=== PATIENT | female | born 1975 ===

== ENCOUNTER 2017-06-17 20:58 | Emergency (ER) | payer OTHER ==
[2017-06-17 21:16] VITALS: BP 124/77; PULSE 62; RESP 18; TEMP 98.5; O2SAT 99
--- NOTE | 2017-06-17 21:59 | ED PDOC ---
HPI: Abdomen Time Seen by Provider: 06/17/17 21:24 Chief Complaint (Nursing): Female Genitourinary Chief Complaint (Provider): abdominal pain History Per: Patient History/Exam Limitations: no limitations Onset/Duration Of Symptoms: Days (2), Waxing/Waning Current Symptoms Are (Timing): Still Present Location Of Pain/Discomfort: RUQ, RLQ, Other (right flank) Quality Of Discomfort: Stabbing, "Pain" Associated Symptoms: Nausea. denies: Fever, Chills, Vomiting, Constipation, Urinary Symptoms Additional History Per: Patient Additional Complaint(s): 41 y/o female presents with intermittent right-sided abdominal pain x 2 days. Associated nausea, dysuria. Denies fever, vomiting, chest pain, changes in bowel movements, hematuria, vaginal bleeding/discharge. Patient states she has a history of ovarian cysts. Past Medical History Reviewed: Historical Data, Nursing Documentation, Vital Signs Vital Signs: Last Vital Signs Temp 98.5 F 06/17/17 21:11 Pulse 62 06/17/17 21:11 Resp 18 06/17/17 21:11 BP 124/77 06/17/17 21:11 Pulse Ox 99 06/17/17 23:40 - Surgical History Surgical History: Cholecystectomy - Family History Family History: States: No Known Family Hx - Home Medications Home Medications: Ambulatory Orders Medication Instructions Recorded Naproxen [Naprosyn] 500 mg PO Q12 PRN #20 tablet 06/18/17 - Allergies Allergies/Adverse Reactions: Allergies Allergy/AdvReac Type Severity Reaction Status Date / Time No Known Allergies Allergy Verified 06/17/17 21:39 Review of Systems ROS Statement: Except As Marked, All Systems Reviewed And Found Negative Gastrointestinal: Positive for: Abdominal Pain Genitourinary Female: Positive for: Dysuria Physical Exam - Reviewed Nursing Documentation Reviewed: Yes Vital Signs Reviewed: Yes - Physical Exam Appears: Positive for: Well, Non-toxic, No Acute Distress Head Exam: Positive for: ATRAUMATIC, NORMAL INSPECTION, NORMOCEPHALIC Skin: Positive for: Normal Color Eye Exam: Positive for: Normal appearance ENT: Positive for: Normal ENT Inspection Cardiovascular/Chest: Positive for: Regular Rate, Rhythm Respiratory: Positive for: Normal Breath Sounds Gastrointestinal/Abdominal: Positive for: Bowel Sounds, Soft, Tenderness (rlq, right flank). Negative for: Distended, Rebound Back: Positive for: Normal Inspection Extremity: Positive for: Normal ROM Neurologic/Psych: Positive for: Alert, Oriented - Laboratory Results Result Diagrams: 06/17/17 23:14 06/17/17 23:14 - ECG O2 Sat by Pulse Oximetry: 99 - Progress ED Course And Treament: EXAM: US Pelvis, Transvaginal CLINICAL HISTORY: 41 years old, female; Pain; Pelvic pain; Additional info: Right pelvic pain, h/ o cyst TECHNIQUE: Real-time transvaginal pelvic ultrasound (complete) with image documentation. Transvaginal imaging was used for better evaluation of the endometrium and adnexa. COMPARISON: No relevant prior studies available. FINDINGS: Uterus/cervix: Uterus measures 8.4 x 3.7 x 5.2 cm in size. No myometrial mass. Endometrium: 1.0 cm in thickness. Nabothian cysts. Right ovary: 2.0 x 1.9 x 1.9 cm in size. No mass. Small follicles. Normal flow. Left ovary: 2.4 x 1.4 x 1.8 cm in size. No mass. Small follicles. Normal flow. Free fluid: No significant free fluid. Bladder: Empty bladder which cannot be evaluated with this probe. IMPRESSION: 1. No acute findings. EXAM: CT Abdomen and Pelvis With Intravenous Contrast CLINICAL HISTORY: 41 years old, female; Pain; Abdominal pain; Localized; Right; Prior surgery; Surgery date: 6+ months; Surgery type: Gall bladder removed; Additional info: Right abdominal pain TECHNIQUE: Axial computed tomography images of the abdomen and pelvis with intravenous contrast. All CT scans at this facility use one or more dose reduction techniques, viz.: automated exposure control; ma/kV adjustment per patient size (including targeted exams where dose is matched to indication; i.e. head); or iterative reconstruction technique. Coronal and sagittal reformatted images were created and reviewed. CONTRAST: 95 mL of administered intravenously. COMPARISON: US - TRANSVAGINAL 06/17/2017 10:44:53 PM FINDINGS: Lower thorax: No acute findings. ABDOMEN: Liver: Mild fatty infiltration. Gallbladder and bile ducts: Cholecystectomy. No ductal dilation. Pancreas: No ductal dilation. No mass. Spleen: No splenomegaly. Adrenals: No mass. Kidneys and ureters: No mass. No hydronephrosis. Stomach and bowel: No definite mural thickening. No obstruction. Appendix: Normal caliber. No inflammation. PELVIS: Bladder: Unremarkable. Reproductive: Small ovarian follicles. 0.9 x 1.1 x 0.9 cm peripherally enhancing hypodensity with crenulated margins within RIGHT ovary. ABDOMEN and PELVIS: Intraperitoneal space: No significant fluid collection. No free air. Bones/joints: No acute fracture. Soft tissues: Unremarkable. Vasculature: Unremarkable. No aneurysm. Lymph nodes: No pathologically enlarged lymph nodes. IMPRESSION: 1. Involuting or ruptured RIGHT ovarian follicle/cyst. 2. Incidental/non-acute findings are described above. On re-eval, patient states she is feeling better. Patient educated on findings, discharged with rx Naproxen. Advised follow up life agent 2-3 days. Return to ED for worsening/concerning smypotms. Disposition - Clinical Impression Clinical Impression: Ovarian cyst - Patient ED Disposition Is Patient to be Admitted: No Counseled Patient/Family Regarding: Studies Performed, Diagnosis, Need For Followup, Rx Given - [facility]position [facility] Disposition: Routine/Home Disposition Time: 00:49 Condition: IMPROVED Prescriptions: Naproxen [Naprosyn] 500 mg PO Q12 PRN #20 tablet PRN Reason: Pain, Moderate (4-7) Instructions: Ovarian Cyst (ED) Print Language: AMHARIC
[2017-06-17 23:18] LABS: BASO % 0.4 % (0.0-2.0); EOS # 0.1 K/uL (0.0-0.7); EOS % 1.4 % (0.0-4.0); HEMATOCRIT 37.8 % (34.0-47.0); LYMPH # 2.8 K/uL (1.0-4.3); LYMPH % 32.1 % (20.0-40.0); MEAN CELL VOLUME 84.4 fl (81.0-99.0); MEAN CORPUSCULAR HGB CONC 33.2 g/dL (33.0-37.0); MEAN PLATELET VOLUME 8.1 fl (7.2-11.7); MONO # 0.9 K/uL (0.0-0.8); MONO % 9.9 % (0.0-10.0); NEUT # 4.9 K/uL (1.8-7.0); NEUT % 56.2 % (50.0-75.0); RED CELL DISTRIBUTION WIDTH 13.5 % (11.5-14.5); WHITE BLOOD COUNT 8.7 K/uL (4.8-10.8)
[2017-06-17 23:27] LABS: ALB/GLOB RATIO 1.4 (1.0-2.1); ALKALINE PHOSPHATASE 50 U/L (38-126); ALT/SGPT 30 U/L (9-52); AST/SGOT 19 U/L (14-36); BILIRUBIN,TOTAL 0.4 mg/dl (0.2-1.3); BLOOD UREA NITROGEN 11 mg/dl (7-17); CALCIUM 9.2 mg/dL (8.4-10.2); CARBON DIOXIDE 25 mmol/L (22-30); CHLORIDE 104 mmol/L (98-107); GFR AFRICAN-AMERICAN > 60; GLUCOSE,RANDOM 90 mg/dL (65-105); POTASSIUM 3.9 MMOL/L (3.6-5.0); SODIUM 138 mmol/l (132-148); TOTAL PROTEIN 6.8 G/DL (6.3-8.2)
--- NOTE | 2017-06-17 23:39 | US ---
EXAM: US Pelvis, Transvaginal CLINICAL HISTORY: 41 years old, female; Pain; Pelvic pain; Additional info: Right pelvic pain, h/o cyst TECHNIQUE: Real-time transvaginal pelvic ultrasound (complete) with image documentation. Transvaginal imaging was used for better evaluation of the endometrium and adnexa. COMPARISON: No relevant prior studies available. FINDINGS: Uterus/cervix: Uterus measures 8.4 x 3.7 x 5.2 cm in size. No myometrial mass. Endometrium: 1.0 cm in thickness. Nabothian cysts. Right ovary: 2.0 x 1.9 x 1.9 cm in size. No mass. Small follicles. Normal flow. Left ovary: 2.4 x 1.4 x 1.8 cm in size. No mass. Small follicles. Normal flow. Free fluid: No significant free fluid. Bladder: Empty bladder which cannot be evaluated with this probe. IMPRESSION: 1.No acute findings.
[2017-06-17 23:43] LABS: RBC URINE 1 /hpf (0-3); URINE BACTERIA RARE (<OCC); URINE BILIRUBIN NEGATIVE (NEGATIVE); URINE BLOOD NEGATIVE (NEGATIVE); URINE COLOR STRAW (YELLOW); URINE GLUCOSE (UA) NEG (Normal); URINE KETONE NEGATIVE (NEGATIVE); URINE LEUKOCYTE ESTERASE TRACE Leu/uL (Negative); URINE PROTEIN NEGATIVE (NEGATIVE); URINE UROBILINOGEN 0.2-1.0 mg/dL (0.2-1.0); WBC URINE 1 /hpf (0-5)
[2017-06-17] MEDS ORDERED: Sodium Chloride 0.9% 50 ML IV ONE (23:58)
[2017-06-17] MEDS ORDERED: Iohexol 300 100 ML IJ ONE (23:58)
--- NOTE | 2017-06-18 00:39 | CT ---
EXAM: CT Abdomen and Pelvis With Intravenous Contrast CLINICAL HISTORY: 41 years old, female; Pain; Abdominal pain; Localized; Right; Prior surgery; Surgery date: 6+ months; Surgery type: Gall bladder removed; Additional info: Right abdominal pain TECHNIQUE: Axial computed tomography images of the abdomen and pelvis with intravenous contrast. All CT scans at this facility use one or more dose reduction techniques, viz.: automated exposure control; ma/kV adjustment per patient size (including targeted exams where dose is matched to indication; i.e. head); or iterative reconstruction technique. Coronal and sagittal reformatted images were created and reviewed. CONTRAST: 95 mL of [id number] administered intravenously. COMPARISON: US - TRANSVAGINAL 06/17/2017 10:44:53 PM FINDINGS: Lower thorax: No acute findings. ABDOMEN: Liver: Mild fatty infiltration. Gallbladder and bile ducts: Cholecystectomy. No ductal dilation. Pancreas: No ductal dilation. No mass. Spleen: No splenomegaly. Adrenals: No mass. Kidneys and ureters: No mass. No hydronephrosis. Stomach and bowel: No definite mural thickening. No obstruction. Appendix: Normal caliber. No inflammation. PELVIS: Bladder: Unremarkable. Reproductive: Small ovarian follicles. 0.9 x 1.1 x 0.9 cm peripherally enhancing hypodensity with crenulated margins within RIGHT ovary. ABDOMEN and PELVIS: Intraperitoneal space: No significant fluid collection. No free air. Bones/joints: No acute fracture. Soft tissues: Unremarkable. Vasculature: Unremarkable. No aneurysm. Lymph nodes: No pathologically enlarged lymph nodes. IMPRESSION: 1. Involuting or ruptured RIGHT ovarian follicle/cyst. 2. Incidental/non-acute findings are described above.
== END 2017-06-18 01:10 | disposition home or self-care (01) ==
LOC: H.ER 20:58
DX: N83.01 Follicular cyst of right ovary (principal)
CPT/HCPCS: 74177; 76830; 80053; 81003; 81025; 85025; 87086; 99285; J1885; Q9967

== ENCOUNTER 2017-10-09 09:15 | Emergency (ER) | payer OTHER ==
[2017-10-09 09:20] VITALS: BP 121/51; PULSE 77; RESP 18; TEMP 96.6; O2SAT 99
--- NOTE | 2017-10-09 09:58 | ED PDOC ---
HPI: Female Pain Time Seen by Provider: 10/09/17 09:29 Chief Complaint (Nursing): Female Genitourinary History Per: Patient (She is a 41 yo female with h/o uti (last one about 6 months ago) who presents to the ER with c/o burning in the urine along with suprapubic pain for the past 1-2 days. She denies fever, chills, nausea, vomiting, back pain or vaginal bleeding/discharge.) Past Medical History Reviewed: Historical Data, Nursing Documentation, Vital Signs Vital Signs: Last Vital Signs Temp 96.6 F L 10/09/17 09:19 Pulse 77 10/09/17 09:19 Resp 18 10/09/17 09:19 BP 121/51 L 10/09/17 09:19 Pulse Ox 99 10/09/17 09:19 - Medical History PMH: Gall Bladder Disease - Surgical History Surgical History: Cholecystectomy - Family History Family History: States: No Known Family Hx - Living Arrangements Living Arrangements: With Family - Social History Current smoker - smoking cessation education provided: No - Home Medications Home Medications: Ambulatory Orders Medication Instructions Recorded Naproxen [Naprosyn] 500 mg PO Q12 PRN #20 tablet 06/18/17 Sulfamethoxazole/Trimethoprim 1 tab PO BID #6 tab 10/09/17 [Bactrim DS 800 mg-160 mg] - Allergies Allergies/Adverse Reactions: Allergies Allergy/AdvReac Type Severity Reaction Status Date / Time No Known Allergies Allergy Verified 10/09/17 09:29 Review of Systems ROS Statement: Except As Marked, All Systems Reviewed And Found Negative Constitutional: Negative for: Fever, Chills Respiratory: Negative for: Cough Gastrointestinal: Positive for: Abdominal Pain (suprapubic). Negative for: Nausea, Vomiting Genitourinary Female: Positive for: Dysuria, Frequency. Negative for: Hematuria , Vaginal Discharge, Vaginal Bleeding Physical Exam - Reviewed Nursing Documentation Reviewed: Yes Vital Signs Reviewed: Yes - Physical Exam Appears: Positive for: Well, Non-toxic, No Acute Distress Head Exam: Positive for: ATRAUMATIC, NORMAL INSPECTION, NORMOCEPHALIC Skin: Positive for: Normal Color, Warm, DRY Eye Exam: Positive for: Normal appearance ENT: Positive for: Normal ENT Inspection Neck: Positive for: Normal Respiratory: Positive for: CNT, Normal Breath Sounds Gastrointestinal/Abdominal: Positive for: Normal Exam, Bowel Sounds, Soft, Tenderness (suprapubic areas) Back: Positive for: Normal Inspection Extremity: Positive for: Normal ROM Neurologic/Psych: Positive for: Alert, Oriented - Laboratory Results Urine POC: Negative Urine dip results: Positive for: Leukocyte Esterase, Nitrate - ECG O2 Sat by Pulse Oximetry: 99 Disposition - Clinical Impression Clinical Impression: Urinary tract infection - Patient ED Disposition Is Patient to be Admitted: No Doctor Will See Patient In The: Office Counseled Patient/Family Regarding: Diagnosis, Need For Followup, Rx Given - Disposition Referrals: [facility] [Outside] [facility] [Outside] Disposition: Routine/Home Disposition Time: 10:00 Condition: STABLE Prescriptions: Sulfamethoxazole/Trimethoprim [Bactrim DS 800 mg-160 mg] 1 tab PO BID #6 tab Instructions: Urinary Tract Infection in Women (ED) Forms: [employer] (Gabonese), [facility] ED School/Work Excuse Print Language: YAKUT - POA Present On Arrival: None
== END 2017-10-09 10:35 | disposition home or self-care (01) ==
LOC: H.ER 09:15
DX: N39.0 Urinary tract infection, site not specified (principal)

== ENCOUNTER 2017-10-30 14:10 | Emergency (ER) | payer OTHER, SELFPAY ==
[2017-10-30 14:18] VITALS: BP 115/73; PULSE 77; RESP 18; TEMP 98; O2SAT 99
--- NOTE | 2017-10-30 15:30 | ED PDOC ---
HPI: General Adult Time Seen by Provider: 10/30/17 15:05 Chief Complaint (Nursing): Abdominal Pain Chief Complaint (Provider): Abdominal Pain History Per: Patient History/Exam Limitations: no limitations Onset/Duration Of Symptoms: Days Additional Complaint(s): 41 year old female presents to the emergency department with a complaint of a right-sided pelvic pain with dysuria for 3-4 weeks with a gradual onset. Patient was diagnosed with a urinary tract infection last month and reports taking medications but dysuria returned about 1 week ago. Patient reports pain persistent and she attempted to make an appointment with the clinic but they told her they were unable to schedule her for one. Patient also reports subjective chills and nausea. Denies fever, vomiting, bowel changes, abnormal discharge, or vaginal bleeding. Last menstrual period: Oct 09. Past Medical History Reviewed: Historical Data, Nursing Documentation, Vital Signs Vital Signs: Last Vital Signs Temp 98 F 10/30/17 14:14 Pulse 77 10/30/17 14:14 Resp 18 10/30/17 14:14 BP 115/73 10/30/17 14:14 Pulse Ox 99 10/30/17 15:57 - Medical History PMH: Gall Bladder Disease - Surgical History Surgical History: Cholecystectomy - Family History Family History: States: No Known Family Hx - Social History Current smoker - smoking cessation education provided: No Alcohol: None Drugs: Denies - Home Medications Home Medications: Ambulatory Orders Medication Instructions Recorded Naproxen [Naprosyn] 500 mg PO Q12 PRN #20 tablet 06/18/17 Sulfamethoxazole/Trimethoprim 1 tab PO BID #6 tab 10/09/17 [Bactrim DS 800 mg-160 mg] Ciprofloxacin HCl [Cipro] 250 mg PO BID #14 tab 10/30/17 Ibuprofen [Motrin Tab] 600 mg PO Q8 PRN #60 tab 10/30/17 - Allergies Allergies/Adverse Reactions: Allergies Allergy/AdvReac Type Severity Reaction Status Date / Time No Known Allergies Allergy Verified 10/09/17 09:29 Review of Systems ROS Statement: Except As Marked, All Systems Reviewed And Found Negative (As per HPI, otherwise negative) Constitutional: Positive for: Chills. Negative for: Fever Gastrointestinal: Positive for: Nausea. Negative for: Vomiting, Other (bowel changes) Genitourinary Female: Positive for: Dysuria, Pelvic Pain (Right sided). Negative for: Vaginal Discharge, Vaginal Bleeding Physical Exam - Reviewed Nursing Documentation Reviewed: Yes Vital Signs Reviewed: Yes - Physical Exam Appears: Positive for: Non-toxic, No Acute Distress Head Exam: Positive for: ATRAUMATIC, NORMOCEPHALIC Skin: Positive for: Warm, Dry Eye Exam: Positive for: EOMI, PERRL ENT: Positive for: Pharynx Is (clear with moist mucus membranes) Neck: Positive for: Painless ROM, Supple Cardiovascular/Chest: Positive for: Regular Rate, Rhythm, Chest Non Tender. Negative for: Murmur Respiratory: Positive for: Normal Breath Sounds. Negative for: Wheezing Gastrointestinal/Abdominal: Positive for: Bowel Sounds, Soft, Tenderness (deep RLQ ttp). Negative for: Mass, Distended, Guarding, Rebound Back: Positive for: Normal Inspection. Negative for: L CVA Tenderness, R CVA Tenderness Extremity: Positive for: Normal ROM. Negative for: Deformity Lymphatic: Negative for: Adenopathy Neurologic/Psych: Positive for: Alert. Negative for: Motor/Sensory Deficits - ECG O2 Sat by Pulse Oximetry: 99 (RA) Pulse Ox Interpretation: Normal - Progress ED Course And Treament: Time: 1515 --Reviewed patients charts and she was seen in this ER two times for the same thing. First visit was on Jun 17, 2017 and second visit was on Oct 09, 2017. CT scan from May demonstrated ovarian cyst. --In September, patient had urinary tract infection and prescribed Bactrim however cultures demonstrated resistance to Bactrim and our facility tried to contact her. Patients information was incorrect and she was never informed nor prescribed alternative antibiotics, Medical Decision Making Medical Decision Making: Time: 151 Initial Impression: Subacute pelvic pain and dysuria. Differential includes ovarian cyst, urinary tract infection (UTI), and cystitis. Initial Plan: Urine DIP & Preg Toradol 30 mg IM Urinalysis Transvaginal US Reevaluation Time: 155 --UDip demonstrates moderate leukocytes and small blood trace. Accession No. : [id number] Patient Name / ID : SHANNAN HIDALGO / [id number] Exam Date : 10/30/2017 16:26:55 ( Approved ) Study Comment : Sex / Age : F / [id number] Creator : Arnol Mansfield MD Dictator : Sales Person : Retail Associate : Arnol Mansfield MD Approver2 : Report Date : 10/30/2017 17:12:46 My Comment : HISTORY: Right-sided pelvic pain COMPARISON: Comparison made with prior pelvic ultrasound 06/17/2017. TECHNIQUE: Transvaginal sonographic evaluation of the pelvis performed FINDINGS: UTERUS: Uterus is anteverted measuring approximately 8 cm x 3.5 cm x 4.7 cm cm. Normal in size and appearance. No fibroid or other mass lesion seen. ENDOMETRIUM: Endometrium measures approximately 1.1 cm mm in diameter. Unremarkable. CERVIX: Small cervical nabothian cyst measuring approximately 5 mm x 6 mm x 6 mm seen. RIGHT OVARY: Right ovary measures approximately 2.2 x 1.8 x 2.4 cm. No solid mass. Normal flow. LEFT OVARY: Left ovary measures approximately 1.7 x 1.6 x 2.1 cm. No solid mass. Normal flow. FREE FLUID: No significant free fluid noted. OTHER FINDINGS: None. IMPRESSION: Small cervical nabothian cyst. Endometrial measures approximate 1.1 cm Reviewed with pt findings and plan of care. Antibiotics with clinic follow up. Obtained clinic appointment with FP resident Dr Christiansen to confirm available followup appointment. Scribe~Attestation: Documented by Camelia Kiser, acting as a scribe for Tasha Vang MD. Provider Scribe~Attestation: All medical record entries made by the Scribe were at my direction and personally dictated by me. I have reviewed the chart and agree that the record accurately reflects my personal performance of the history, physical exam, medical decision making, and the department course for this patient. I have also personally directed, reviewed, and agree with the discharge instructions and disposition. Disposition - Clinical Impression Clinical Impression: UTI (urinary tract infection), Ovarian cyst - Disposition Referrals: [facility] [Outside] - 11/09/17 3:00 pm Disposition: Routine/Home Disposition Time: 17:00 Condition: STABLE Prescriptions: Ciprofloxacin HCl [Cipro] 250 mg PO BID #14 tab Ibuprofen [Motrin Tab] 600 mg PO Q8 PRN #60 tab PRN Reason: Pain, Moderate (4-7) Instructions: Ovarian Cyst (ED), Urinary Tract Infection in Women (ED) Print Language: HONDURAN
[2017-10-30 16:26] LABS: SQUAMOUS EPITHIAL 3 /hpf (0-5); URINE BACTERIA RARE (<OCC); URINE BILIRUBIN NEGATIVE (NEGATIVE); URINE BLOOD NEGATIVE (NEGATIVE); URINE CLARITY SLIGHTY-CLOUDY (Clear); URINE COLOR YELLOW (YELLOW); URINE GLUCOSE (UA) NEG (Normal); URINE LEUKOCYTE ESTERASE LARGE Leu/uL (Negative); URINE NITRATE NEGATIVE (NEGATIVE); URINE PROTEIN NEGATIVE (NEGATIVE); URINE UROBILINOGEN 0.2-1.0 mg/dL (0.2-1.0)
--- NOTE | 2017-10-30 17:14 | US ---
HISTORY: Right-sided pelvic pain COMPARISON: Comparison made with prior pelvic ultrasound 06/17/2017. TECHNIQUE: Transvaginal sonographic evaluation of the pelvis performed FINDINGS: UTERUS: Uterus is anteverted measuring approximately 8 cm x 3.5 cm x 4.7 cm cm. Normal in size and appearance. No fibroid or other mass lesion seen. ENDOMETRIUM: Endometrium measures approximately 1.1 cm mm in diameter. Unremarkable. CERVIX: Small cervical nabothian cyst measuring approximately 5 mm x 6 mm x 6 mm seen. RIGHT OVARY: Right ovary measures approximately 2.2 x 1.8 x 2.4 cm. No solid mass. Normal flow. LEFT OVARY: Left ovary measures approximately 1.7 x 1.6 x 2.1 cm. No solid mass. Normal flow. FREE FLUID: No significant free fluid noted. OTHER FINDINGS: None. IMPRESSION: Small cervical nabothian cyst. Endometrial measures approximate 1.1 cm
[2017-10-30] MEDS ORDERED: Alum-Mag Hydrox-Simethicone Susp (30 mL) ONE (21:09)
== END 2017-10-30 17:02 | disposition home or self-care (01) ==
LOC: H.ER 14:10
DX: N39.0 Urinary tract infection, site not specified (principal); N83.209 Unspecified ovarian cyst, unspecified side; N88.8 Other specified noninflammatory disorders of cervix uteri
CPT/HCPCS: 76830; 81003; 81025; 87086; 87181; 96372; 99282; J1885

== ENCOUNTER 2018-08-19 09:45 | Emergency (ER) | payer OTHER, SELFPAY ==
[2018-08-19 09:54] VITALS: BP 114/74; PULSE 64; RESP 18
[2018-08-19 09:55] VITALS: BMI 37.4
[2018-08-19 10:03] VITALS: O2SAT 98
[2018-08-19] MEDS ORDERED: Alum-Mag Hydrox-Simethicone Susp (30 mL) PO ONE (10:18)
--- NOTE | 2018-08-19 10:21 | ED PDOC ---
HPI: Abdomen History Per: Patient Additional Complaint(s): Patient seen and examined at bedside with attending. 42F no significant PMH p/w RUQ/epigastric pain she describes as crampy without radiation into chest or Right infrascapular that she rates as 3-4/10. The pain started Thursday morning and has continued daily since that time without exacerbating but was mildly alleviated after trying Doris-Stephanie one time. She denies having this pain before but endorses eating fatty, spicy foods. She denies associated fevers, chills, SOB, chest pain/palpitations, last BM was nml yesterday, denies urinary frequency/pain/or burning. LMP: 08/18/2018 PMD: [facility] (Dr Barriga) PMH: None PSH: Lap Kailee ~2012, BTL ALL: NKDA Denies alcohol/smoking/drugs <Belinda Alejandre - Last Filed: 08/19/18 12:10> <Zehra Castillo - Last Filed: 08/19/18 12:20> Time Seen by Provider: 08/19/18 10:12 Chief Complaint (Nursing): Abdominal Pain Supervising Attending Note - Supervising Attending Note The Documented history was done by the: Physician [employer] Collection Officer The documented physical exam was done by the: Physician Commercial Loan Collection Officer The documented procedures were done by the: Physician Commercial Loan Collection Officer - Attestation: I have personally seen and examined this patient.: Yes I have fully participated in the care of the patient.: Yes I have reviewed all pertinent clinical information: Yes - Notes: Notes:: Pt with pain improved with GI coctail. PE shows abd soft non-tender. Afebrile and vitals WNL. Pt given follow up instructions and Rx for Ranitidine. Return parameters discussed. Agree with resident assessment and plan. <Zehra Castillo - Last Filed: 08/19/18 12:20> Past Medical History Vital Signs: Last Vital Signs Temp 36.8 C 08/19/18 09:59 Pulse 64 08/19/18 09:59 Resp 18 08/19/18 09:59 BP 114/74 08/19/18 09:59 Pulse Ox 98 08/19/18 09:59 - Medical History PMH: Gall Bladder Disease - Surgical History Surgical History: Cholecystectomy - Family History Family History: States: Unknown Family Hx - Immunization History Hx Tetanus Toxoid Vaccination: No Hx Influenza Vaccination: No Hx Pneumococcal Vaccination: No <PiliBelinda - Last Filed: 08/19/18 12:10> Vital Signs: Last Vital Signs Temp 98.3 F 08/19/18 09:59 Pulse 64 08/19/18 09:59 Resp 18 08/19/18 09:59 BP 114/74 08/19/18 09:59 Pulse Ox 98 08/19/18 12:11 <Zehra Castillo - Last Filed: 08/19/18 12:20> - Home Medications Home Medications: Ambulatory Orders Medication Instructions Recorded Naproxen [Naprosyn] 500 mg PO Q12 PRN #20 tablet 06/18/17 Sulfamethoxazole/Trimethoprim 1 tab PO BID #6 tab 10/09/17 [Bactrim DS 800 mg-160 mg] Ciprofloxacin HCl [Cipro] 250 mg PO BID #14 tab 10/30/17 Ibuprofen [Motrin Tab] 600 mg PO Q8 PRN #60 tab 10/30/17 Ranitidine HCl 300 mg PO DAILY #30 tablet 08/19/18 - Allergies Allergies/Adverse Reactions: Allergies Allergy/AdvReac Type Severity Reaction Status Date / Time No Known Allergies Allergy Verified 08/19/18 09:59 Review of Systems ROS Statement: Except As Marked, All Systems Reviewed And Found Negative Gastrointestinal: Positive for: Nausea, Abdominal Pain. Negative for: Diarrhea, Constipation <PiliBelinda - Last Filed: 08/19/18 12:10> Physical Exam - Reviewed Vital Signs Reviewed: Yes - Physical Exam Appears: Positive for: Well, Non-toxic, No Acute Distress Head Exam: Positive for: ATRAUMATIC, NORMAL INSPECTION Skin: Positive for: Normal Color, Warm, Dry Eye Exam: Positive for: Normal appearance, EOMI Neck: Positive for: Supple Cardiovascular/Chest: Positive for: Regular Rate, Rhythm Respiratory: Positive for: Normal Breath Sounds. Negative for: Crackles, Rales, Rhonchi, Wheezing Gastrointestinal/Abdominal: Positive for: Bowel Sounds, Soft, Tenderness (MILD ttp primariy at epigastric region). Negative for: Guarding, Rebound Back: Negative for: L CVA Tenderness, R CVA Tenderness Extremity: Positive for: Normal ROM, Capillary Refill (<3s). Negative for: Pedal Edema, Calf Tenderness Lymphatic: Negative for: Adenopathy Neurologic/Psych: Positive for: Alert, Oriented <PiliBelinda - Last Filed: 08/19/18 12:10> - Laboratory Results Result Diagrams: 08/19/18 11:10 08/19/18 11:10 - ECG O2 Sat by Pulse Oximetry: 98 - Progress ED Course And Treament: Patient treated for gastritis with Mylanta/Viscous Lidocaine but she reports no improvement and states pain is "worse". Will obtain basic labs and administer P epcid. Re-evaluation Time: 11:00 Condition: Worse <PiliBelinda - Last Filed: 08/19/18 12:10> - Laboratory Results Result Diagrams: 08/19/18 11:10 08/19/18 11:10 <Zehra Castillo - Last Filed: 08/19/18 12:20> Medical Decision Making Medical Decision MakinF suspect gastritis vs. GERD vs.much less likely pancreatitis. - 30ml Mylanta - 15ml 2% Viscous Lidocaine - Monitor 30 minutes - IF improves will d/c on Ranitidine to f/u at [facility] 1100 Pain "worse, exam and history remains most c/w gastritis and possible ulcer. - CBC, CMP, Lipase - Pepcid 40mg PO x1 - Will consider 1g Tylenol after LFT results - Reeval 1134 - CBC WNL 1205 - All labs WNL - Patient with improvement - d/c home with Zantac 300mg, HS; f/u [facility] clinic <Belinda Alejandre - Last Filed: 08/19/18 12:10> Disposition - Disposition Disposition Time: 12:11 <Belinda Alejandre - Last Filed: 08/19/18 12:10> <Zehra Castillo - Last Filed: 08/19/18 12:20> - Clinical Impression Clinical Impression: Abdominal pain, Gastritis - Disposition Condition: GOOD Prescriptions: Ranitidine HCl 300 mg PO DAILY #30 tablet Instructions: Gastritis (DC), Stomach Ache and Stomach Upset Forms: [facility] (Telugu), [employer] [facility] (Urdu) Print Language: SENEGALESE
[2018-08-19] MEDS ORDERED: Alum-Mag Hydrox-Simethicone Susp (30 mL) ONE (10:37)
[2018-08-19 11:24] LABS: HEMOGLOBIN 13.4 g/dL (12.0-16.0); MEAN CORPUSCULAR HEMOGLOBIN 29.3 pg (27.0-31.0); MEAN CORPUSCULAR HGB CONC 34.1 g/dL (33.0-37.0); RBC 4.57 Mil/uL (3.80-5.20)
[2018-08-19 11:37] LABS: ALB/GLOB RATIO 1.2 (1.0-2.1); ALBUMIN 3.8 g/dL (3.5-5.0); ALT/SGPT 31 U/L (9-52); AST/SGOT 25 U/L (14-36); BLOOD UREA NITROGEN 7 mg/dl (7-17); CALCIUM 8.7 mg/dL (8.4-10.2); GFR NON-AFRICAN AMERICAN > 60; LIPASE 47 U/L (23-300)
[2018-08-19 12:32] VITALS: TEMP 98
== END 2018-08-19 12:25 | disposition home or self-care (01) ==
LOC: H.ER 09:45
DX: K29.70 Gastritis, unspecified, without bleeding (principal)